=== PATIENT | female | born 1955 | race Two or more races ===

== ENCOUNTER 2020-10-06 19:25 | Emergency (ER) | payer MEDICARE, BC ==
[~2020-10-06] VITALS: Ht 165.1 cm; Wt 90.3 kg
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
--- NOTE | 2020-10-06 19:53 | NUR ---
SEEN AND EXAMINED BY NINA ZUÑIGA
[2020-10-06] MEDS ORDERED: LIDOCAINE 1%-EPI 1:100,000 20 ML VIAL ONE (19:54)
[2020-10-06] MEDS ORDERED: ACETAMINOPHEN 325 MG TABLET PO ONE (20:00)
[2020-10-06] MEDS ORDERED: BACITRACIN ZINC OINT PACKET 1 EA PACKET TP ONE (20:00)
[2020-10-06] MEDS ORDERED: LIDOCAINE 1%-EPI 1:100,000 20 ML VIAL TP ONE (20:00)
[2020-10-06] MEDS ORDERED: ACETAMINOPHEN ES 500 MG TABLET ONE (20:01)
[2020-10-06] MEDS ORDERED: IBUPROFEN 600 MG TABLET PO ONE (21:30)
[2020-10-06 21:32] VITALS: BP 134/74
--- NOTE | 2020-10-06 21:32 | NUR ---
Patient discharged to home in stable condition. Written and verbal after care instructions given. Patient verbalizes understanding of instruction.
== END 2020-10-06 21:33 | disposition home or self-care (01) ==
LOC: ER 19:25 → EDBD 19:25 → ER 21:33
DX: S02.5XXA Fracture of tooth (traumatic), initial encounter for closed fracture (principal); S01.511A Laceration without foreign body of lip, initial encounter; S03.2XXA Dislocation of tooth, initial encounter; R51.9 Headache, unspecified; E78.5 Hyperlipidemia, unspecified; E03.9 Hypothyroidism, unspecified; Z88.2 Allergy status to sulfonamides; Z88.0 Allergy status to penicillin; W01.0XXA Fall on same level from slipping, tripping and stumbling without subsequent striking against object, initial encounter; Y93.89 Activity, other specified; Y92.89 Other specified places as the place of occurrence of the external cause; Y99.8 Other external cause status
CPT/HCPCS: 12011; 70450; 99284; J3490